=== PATIENT | female | born 1960 | race Caucasian/White ===

== ENCOUNTER 2016-07-25 07:04 | Day surgery (SDC) | payer MEDICARE, BC ==
[~2016-07-25 07:04] MED LIST: Lactated Ringers 1,000 ML IV SCH
[2016-07-25] MEDS ORDERED: Midazolam 1 MG/ML 2 ML SDV ONE (08:03)
[2016-07-25] MEDS ORDERED: fentaNYL 100 MCG/2 ML SDV ONE (08:03)
[2016-07-25] MEDS ORDERED: Propofol 200 MG/20 ML SDV ONE (08:03)
[2016-07-25 10:06] VITALS: BP 121/76
--- NOTE | 2016-07-28 08:25 | OR ---
DATE OF PROCEDURE: 07/25/2016 PREOPERATIVE DIAGNOSES: History of tubulovillous adenomas. POSTOPERATIVE DIAGNOSES: Diverticulosis, history of tubulovillous adenomas. PROCEDURE: Colonoscopy to the cecum. ANESTHESIA: IV anesthesia with monitored anesthesia care. INDICATIONS: This 56-year-old white female is here for a colonoscopy. A little over a year ago, she underwent a snare cautery polypectomy of two tubulovillous adenomas. She is here for followup colonoscopy because of this. I counseled her for the procedure including risks and alternatives, and she gave her informed consent to proceed. DESCRIPTION OF PROCEDURE: The patient was placed in the left lateral decubitus position. IV anesthesia was administered by the Anesthesia Service. Time-out was held. A rectal exam was performed, which was unremarkable. The flexible video Olympus colonoscope was introduced through her anus, up her rectum, and out her colon all way to the cecum. Once the cecum was reached, the scope was slowly withdrawn examining the mucosa throughout. No mucosal abnormalities were noted until we reached the left colon. Here, and in the sigmoid colon, we saw few scattered left-sided diverticula. There was no bleeding or inflammation associated with any of them. The area where the two tubulovillous adenomas were seen was unremarkable. No evidence of recurrence. The scope was retroflexed in the rectum with the distal rectum appearing unremarkable. The scope was straightened and removed. She tolerated the procedure well. Raúl Grajeda MD /[id number] MTDD
== END 2016-07-25 10:10 | disposition home or self-care (01) ==
LOC: JP.SDS 07:04
PROVIDERS: ATTEND Surgery
DX: K57.30 Diverticulosis of large intestine without perforation or abscess without bleeding (principal); I10 Essential (primary) hypertension; E11.9 Type 2 diabetes mellitus without complications; Z88.8 Allergy status to other drugs, medicaments and biological substances
CPT/HCPCS: 45378; J2250; J2704; J3010; J7120

== ENCOUNTER 2019-11-18 07:27 | Day surgery (SDC) | payer MEDICARE, BC ==
[~2019-11-18 07:27] MED LIST changes: -Lactated Ringers 1,000 ML IV SCH; +Midazolam 1 MG/ML 2 ML SDV ONE; +Propofol 200 MG/20 ML SDV ONE; +fentaNYL 100 MCG/2 ML SDV ONE
[2019-11-18] MEDS ORDERED: Dextrose 5%-Lactated Ringers 1,000 ML IV SCH (08:00)
[2019-11-18] MEDS ORDERED: Glycopyrrolate 0.2 MG/ML 2 ML SDV IVPUSH ONE (08:45)
[2019-11-18] MEDS ORDERED: Pantoprazole 40 MG Vial IVPUSH ONE (09:47)
[2019-11-18 10:55] VITALS: BP 113/75; PULSE 76
--- NOTE | 2019-11-21 11:02 | OR ---
DATE OF PROCEDURE: 11/18/2019 SURGEON: Armando Leiva MD PREOPERATIVE DIAGNOSIS: Gastroesophageal reflux disease refractory to medical management. POSTOPERATIVE DIAGNOSES: 1. Large hiatal hernia with extensive erosive esophagitis extending roughly 10 cm above the esophagogastric junction. 2. Mild antral gastritis. 3. Retained bile and scattered solid ingested material within the stomach consistent with diabetic gastroparesis. OPERATIVE PROCEDURE: Esophagogastroduodenoscopy with: 1. Biopsies of esophagogastric junction for histologic evaluation. 2. Biopsies of antrum for CLOtest. ANESTHESIA: IV sedation. INDICATIONS FOR PROCEDURE: This is a 59-year-old presenting with some dysphagia referable to the distal esophagus, as well as some component of laryngopharyngeal dysphagia on close questioning. The patient in the past had been on omeprazole, but stopped that due to side effects. She is presently not on any antisecretory medications. She does have history of type 2 diabetes mellitus, on insulin. The plan is to proceed with upper GI endoscopy with biopsies as indicated. Potential risks including bleeding and perforation were discussed, and the patient wishes to proceed. DETAILS OF PROCEDURE: The patient was taken to the operating room and placed in a left lateral decubitus position. IV sedation was administered, after which the upper GI endoscope was passed orally through the length of the esophagus and into the stomach with retroflexion view of the fundus, and thereafter through the pyloric channel into the proximal duodenum. Findings included some mild redness in the hypopharynx and larynx. As one passed into the esophagus, the upper esophageal sphincter and esophageal body were unremarkable. The patient, however, did have large hiatal hernia measuring around 5 cm, and with this, had extensive erosive esophagitis extending roughly 10 cm above the esophagogastric junction. This was associated with some bleeding with minimal effects of the scope across that area. No stricturing or gross evidence of neoplasia were seen. Within the stomach, there was some retained bile as well as some scattered solid food consistent with diabetic gastroparesis. There was some mild redness in the antrum without erosions or ulcers. The pyloric channel, duodenum to the junction of third and fourth portions were unremarkable. At this point, biopsies were obtained from the antrum and sent for CLOtest for H pylori. Multiple biopsies were obtained from esophagogastric junction and minimal bleeding from the biopsy sites was seen and the procedure was then concluded. The patient was taken to the recovery room in satisfactory condition. We will have the patient started on Protonix 40 mg a day. She will be given 40 mg of IV Protonix to initiate treatment in the recovery room. We will see the patient back on 11/30/2019. If medical management at this point appears to be satisfactory, that could be continued. If medical management is unsatisfactory and the patient wishes to get off medications, the most appropriate procedure in this case would be high proximal gastrectomy with Khadijah-en-Y reconstruction. Derek fundoplication would be relatively contraindicated, due to the evident diabetic gastroparesis. We will discuss those issues with the patient when seen in followup. Armando Leiva MD /[id number] MTDD
== END 2019-11-18 10:55 | disposition home or self-care (01) ==
LOC: JP.SDS 07:27
PROVIDERS: ATTEND Surgery
DX: K21.0 Gastro-esophageal reflux disease with esophagitis (principal); K29.00 Acute gastritis without bleeding; K44.9 Diaphragmatic hernia without obstruction or gangrene; K31.89 Other diseases of stomach and duodenum; E11.9 Type 2 diabetes mellitus without complications; E66.9 Obesity, unspecified; I10 Essential (primary) hypertension; Z68.35 Body mass index [BMI] 35.0-35.9, adult
CPT/HCPCS: 43239; 87081; 88305; 88312; C9113; J2250; J2704; J3010; J3490; J7121

== ENCOUNTER 2022-02-09 12:13 | Emergency (ER) | payer OTHER, MEDICARE, BC ==
[2022-02-09] MEDS ORDERED: Sodium Chloride 0.9% 10 ML Syringe FLUSH PRN (12:16)
[2022-02-09 12:34] VITALS: BP 146/71; PULSE 67
[2022-02-09] MEDS ORDERED: Bacitracin Oint 1 GM U/D Packet TOP ONE (13:01)
== END 2022-02-09 16:41 | disposition home or self-care (01) ==
LOC: JP.ED 12:13
DX: S16.1XXA Strain of muscle, fascia and tendon at neck level, initial encounter (principal); S20.212A Contusion of left front wall of thorax, initial encounter; S70.02XA Contusion of left hip, initial encounter; S50.02XA Contusion of left elbow, initial encounter; E78.00 Pure hypercholesterolemia, unspecified; E11.9 Type 2 diabetes mellitus without complications; E66.9 Obesity, unspecified; Z68.34 Body mass index [BMI] 34.0-34.9, adult; Z88.6 Allergy status to analgesic agent; Z88.5 Allergy status to narcotic agent; Z88.8 Allergy status to other drugs, medicaments and biological substances; Z79.899 Other long term (current) drug therapy; Z79.84 Long term (current) use of oral hypoglycemic drugs; Z79.4 Long term (current) use of insulin; Z90.49 Acquired absence of other specified parts of digestive tract; V09.20XA Pedestrian injured in traffic accident involving unspecified motor vehicles, initial encounter; Y92.410 Unspecified street and highway as the place of occurrence of the external cause
CPT/HCPCS: 36415; 71045; 71045-26; 72040; 72040-26; 73080-26-LT; 73080-LT; 73502-26-LT; 73502-LT; 80048; 85025; 99284

== ENCOUNTER 2022-08-26 07:29 | Day surgery (SDC) | payer MEDICARE, BC ==
[2022-08-26] MEDS ORDERED: Propofol 200 MG/20 ML SDV ONE (07:37)
[2022-08-26] MEDS ORDERED: Midazolam 1 MG/ML 2 ML SDV ONE (07:38)
[2022-08-26] MEDS ORDERED: fentaNYL 50 MCG/ML SDV ONE (07:38)
[2022-08-26] MEDS ORDERED: Dextrose 5%-Lactated Ringers 1,000 ML IV SCH (08:00)
[2022-08-26] MEDS ORDERED: Lactated Ringers 1,000 ML IV SCH (08:15)
[2022-08-26 10:41] VITALS: BP 143/76; PULSE 62
== END 2022-08-26 11:00 | disposition home or self-care (01) ==
LOC: JP.SDS 07:29
PROVIDERS: ATTEND Family Medicine
DX: Z12.11 Encounter for screening for malignant neoplasm of colon (principal); I10 Essential (primary) hypertension; E11.9 Type 2 diabetes mellitus without complications; K21.9 Gastro-esophageal reflux disease without esophagitis; Z86.010 Personal history of colon polyps; Z88.5 Allergy status to narcotic agent; Z79.4 Long term (current) use of insulin; Z79.899 Other long term (current) drug therapy
CPT/HCPCS: G0105; J2250; J2704; J3010; J7121